=== PATIENT | male | born 1990 | race Caucasian/White ===

== ENCOUNTER 2024-04-13 19:20 | Emergency (ER) | payer BC, SELFPAY ==
--- NOTE | 2024-04-13 19:28 | ED.SYNCOPE ---
HPI - Syncope General Chief Complaint: Syncope Stated Complaint: passed out Time Seen by Provider: 04/13/24 19:28 Source: patient Mode of arrival: ambulatory Limitations: no limitations History of Present Illness HPI narrative: 33-year-old male with no significant past medical history presents stating he had 2 syncopal episodes today. Was standing in a meeting room with coworkers talking and became pale and passed out. Fell to the ground. States he woke up quickly and got back up and then passed out again. Patient's picked him up from work and drove him to urgent care. States he felt nauseated on the way but since sitting and relaxing feels better. No chest pain or shortness of breath. No recent URI symptoms. Patient eating and drinking well but states may have not had enough water today. Since syncopal episode has drink 3 bottles of water. One time in the past he had similar episode and almost passed out but related to that to being outside , hot and working out any sweatshirt. Patient states he eats healthy, exercises daily. all systems reviewed and negative except as noted above. Related Data Home Medications Medication Instructions Recorded Confirmed No Home Medications 04/13/24 04/13/24 Allergies Allergy/AdvReac Type Severity Reaction Status Date / Time No Known Allergies Allergy Verified 04/13/24 19:32 Review of Systems Review of Systems: CONSTITUTIONAL: Denies fever, chills, or sweats. EYES: Denies visual changes, redness, or discharge. ENT: Denies rhinorrhea, congestion, sore throat, or otalgia. CARDIOVASCULAR: Denies chest pain, palpitations, or edema. Reports syncopal episode. RESPIRATORY: Denies cough or dyspnea. GASTROINTESTINAL: Denies abdominal pain, nausea, vomiting, or diarrhea. GENITOURINARY: Denies dysuria or hematuria. SKIN: Denies rash or itching. MUSCULOSKELETAL: Denies back pain, joint pain, or myalgia. NEUROLOGIC: Denies headache, numbness, or weakness. PSYCHIATRIC: Denies anxiety or depression. All other systems reviewed are negative, except as documented in HPI. PMFSH Comments At time of signature, agree with nursing past medical, surgical, social and family history. There is no relevant family history pertinent to the presenting complaint. Exam Narrative: GENERAL: This is a well-nourished, well-developed patient, in no apparent distress. HEAD: normocephalic, atraumatic. EYES: PERRL. Sclera clear/white. Vision is grossly intact. Extraocular motions intact EARS: External ears normal NOSE: External nose normal NECK: Neck supple, non-tender without lymphadenopathy, masses or thyromegaly. CARDIOVASCULAR: Regular rate and rhythm without murmurs, gallops, or rubs. RESPIRATORY: Clear to auscultation. Breath sounds equal bilaterally. No wheezes, rales, or rhonchi. SKIN: warm, Dry, intact with no suspicious lesions or rash, good texture and turgor. NEURO: awake, alert, and oriented to person, place and time. There were no obvious focal neurologic abnormalities. EXTREMITIES: No joint tenderness, effusion, or edema noted. Course Course Level of Care: Express Care Visit Vital Signs Vital signs: Vital Signs Temperature 36.4 C 04/13/24 19:31 Pulse Rate 67 04/13/24 19:31 Respiratory Rate 18 04/13/24 19:31 Blood Pressure 124/80 04/13/24 19:31 Pulse Oximetry 100 04/13/24 19:31 Oxygen Delivery Room Air 04/13/24 19:31 Temperature 36.4 C 04/13/24 19:32 Pulse Rate 67 04/13/24 19:32 Respiratory Rate 18 04/13/24 19:32 Blood Pressure 124/80 04/13/24 19:32 Pulse Oximetry 100 04/13/24 19:32 Oxygen Delivery Room Air 04/13/24 19:32 reviewed MDM - Syncope MDM Narrative Medical decision making narrative: EKG sinus bradycardia, right bundle branch block, heart rate 56. Patient reports heart rate low at baseline. Checks it during workouts. Due to EKG showing right bundle-branch block, syncopal episode x2 today recom
[2024-04-13 19:31] VITALS: BP 124/80; PULSE 67; RESP 18; TEMP 36.4; O2SAT 100
[2024-04-13 19:32] VITALS: BP 124/80; PULSE 67; RESP 18; TEMP 36.4; O2SAT 100
--- NOTE | 2024-04-13 19:38 | ECG_ITS ---
Test Date: 2024-04-13 19:48:44 Measurements Intervals [place] Rate: 56 P: 22 [place]: 173 QRS: -5 QRSD: 129 T: 6 QT: 403 QTc: 389 Interpretive Statements SINUS BRADYCARDIA RIGHT BUNDLE BRANCH BLOCK ABNORMAL ECG No previous ECG available for comparison Electronically Signed On 04-14-2024 07:40:33 CDT by Alexandro Horne D.O.
[2024-04-13 19:49] LABS: Glucose Point of Care 101 mg/dl (65-105)
== END 2024-04-13 19:55 | disposition left against medical advice (07) ==
PROVIDERS: Emergency Provider Nurse Practitioner Family
DX: R55 Syncope and collapse (principal)
CPT/HCPCS: 82948; 93005; 99213; G0463